=== PATIENT | female | born 1950 | race Caucasian/White ===

== ENCOUNTER → 2020-04-18 16:09 | Outpatient (BNVA) | payer MEDICARE, BC, SELFPAY | PROVIDERS: Family Provider Nurse Practitioner; Visit Provider Internal Medicine | DX: K80.20 Calculus of gallbladder without cholecystitis without obstruction (principal); R63.4 Abnormal weight loss; K57.32 Diverticulitis of large intestine without perforation or abscess without bleeding; Z86.010 Personal history of colon polyps | CPT/HCPCS: 80053; 82552; 82607; 82746; 83550; 84443; 85025; 85651; 86140 ==

== ENCOUNTER 2020-04-23 11:30 | Outpatient (CLI) | payer MEDICARE, BC, SELFPAY ==
[2020-04-23] MEDS: iohexol 300 mg/mL 50 mL Btl PO (11:40)
--- NOTE | 2020-04-23 13:00 | CT_ITS ---
WS: [id number] CT scan of the abdomen and pelvis with Oral and IV contrast. Additional two-dimensional coronal and s agittal reconstruction was performed. 04/23/2020 Clinical Data: recurrent and persistent diverticulitis. Comparison: CT abdomen and pelvis, 03/31/2018. DLP: 1111.35 mGy-cm All CT scans at [facility] use at least one of these dose optimization techniques: automat ed exposure control; mA and/or kV adjustment per patient size (includes targeted exams where dose is matched to clinical indication); or iterative reconstruction. Findings: The lower lungs show no masses or effusions. There is a 0.3 cm granuloma seen best in image 1 of 88 adjacent to the posterior right pleural surface. The liver, spleen, adrenal glands and pancreas are normal. There are gallstones within the gallbladde r. The kidneys show equal bilateral contrast excretion with small right renal cysts but no masses, hydro nephrosis or renal calculi. The abdominal aorta is normal in size with minimal calcification in the wall. No appendicitis or diverticulitis is seen. Numerous sigmoid diverticula are present. Oral contrast is in the stomach, small bowel and colon and there is no bowel dilatation. There is a herniation of fat in the left posterior paravertebral region which measures 7.0 x 6 8.4 cm in oblique transverse and o blique superior-inferior dimension. There is a amorphous connecting the abdominal wall to this fatty lesion measuring 1.7 cm. This fatty lesion is unchanged. The bladder is unremarkable. The uterus is a bsent. No inguinal hernia is seen. There is an old compression fracture of L1 along with osteoarthritic change of the lower thoracic and lumbar vertebral bodies. There is degenerative disc narrowing at L4-L5. CT/CT abdomen pelvis w con* [id number] Impression: 1. Negative for acute intra-abdominal or pelvic abnormalities. 2. No change in left paravertebral fatty hernia. 3. No change in cholelithiasis and diverticulosis.
[2020-04-23] MEDS: iohexol 300 mg/mL 100 mL Btl IV (13:22)
== END 2020-04-23 11:31 | disposition home or self-care (01) ==
LOC: RADWPI 11:34
PROVIDERS: PCP Internal Medicine; Visit Provider Internal Medicine
DX: K57.32 Diverticulitis of large intestine without perforation or abscess without bleeding (principal)
CPT/HCPCS: 74177; Q9967

== ENCOUNTER → 2020-04-25 10:44 | Outpatient (BNVA) | payer MEDICARE, BC, SELFPAY | PROVIDERS: PCP Internal Medicine; Visit Provider Internal Medicine | DX: Z11.59 Encounter for screening for other viral diseases (principal) | CPT/HCPCS: 87635 ==

== ENCOUNTER 2020-04-29 09:18 | Day surgery (SDC) | payer MEDICARE, BC, SELFPAY ==
--- NOTE | 2020-04-29 09:20 | W.PM.OPSUD ---
Surgery/Procedure H&P Update DATE OF PROCEDURE: April 29, 2020 DATE H&P PERFORMED: 04/25/20 PLANNED PROCEDURE: Operation Date: 04/29/20 09:50 Proposed Procedures p Colonoscopy 51646 Z86.010(Not Applicable) - Mikey Senior MD
[2020-04-29 10:22] VITALS: BP 141/92; PULSE 90; RESP 18; TEMP 36.2; O2SAT 96
[2020-04-29 10:31] LABS: Glucose Point of Care 108 mg/dL (70-110)
[2020-04-29 10:40] VITALS: BMI 25.2
[2020-04-29] MEDS: sodium chloride 0.9% 1,000 ML 30 ML IV (10:45)
--- NOTE | 2020-04-29 10:49 | ANES.PREANE2 ---
Pre-Anesthetic Assessment Pre-Anesthetic Assessment: Height/Weight: Height 1.63 m Weight 66.678 kg Temp Pulse Resp BP Pulse Ox 97.1 F L 90 18 141/92 96 04/29/20 10:22 04/29/20 10:22 04/29/20 10:22 04/29/20 10:22 04/29/20 10:22 Preop Diagnosis: d Proposed Procedure: Operation Date: 04/29/20 09:50 Proposed Procedures p Colonoscopy 75942 Z86.010(Not Applicable) - Mikey Senior MD Was Beta Tank taken within 24 hours: N/A Last intake: Intake Last Liquid Date 04/28/20 Last Liquid Time 22:00 Last Solid Date 04/27/20 Last Solid Time 20:00 Social: Social History: No alcohol and No tobacco Exam: Pre-Anes Outpt Exam: alert, oriented x 3, clear to auscultation bilaterally and regular rate & rhythm Airway: Submandibular: Other (Receeding Mandible ) Cervical ROM: WNL MP: 3 Dentition: Caps History/ROS: No significant history except as noted Pulmonary: Pulmonary: None reported CV/HEM: CV/HEM: HTN : : None reported Hepatic: Hepatic: None reported GI: GI: GERD Metabolic: Metabolic: DM Musc/skel: Musc/skel: None reported Neuropsych: Neuropsych: Depression Anesthetic Plan: ASA status: 2 Anesthesia: MAC Meds/Allergies Current Medications: Current Medications Generic Name Dose Route Start Last Admin Trade Name Freq PRN Reason Stop Dose Admin Sodium Chloride 1,000 mls @ 30 ml s/hr 04/29/20 10:00 04/29/20 10:45 Sodium Chloride 0.9% IV 30 mls/hr .Q24H NIKOS Administration PFSH Anesthesia PFSH: Family History Father Cancer Hypertension Mother Cancer Hypertension Social History Smoking and tobacco status: never smoked Alcohol intake: never History of recent travel: No Data Anesthesia Other Labs: Laboratory Results - last 48 hr 04/29/20 10:28 POC Glucose 108 Cardiac Studies: No Data to Display
[2020-04-29 11:21] VITALS: BP 125/74; PULSE 69; RESP 16; TEMP 36.2; O2SAT 100
[2020-04-29 11:42] VITALS: BP 120/81; PULSE 74; RESP 16; O2SAT 97
--- NOTE | 2020-04-29 14:07 | ANE.PACU2 ---
Inpatient post-anesthesia follow up: Airway intact: Yes Vital signs: Temperature 97.1 F Pulse Rate 74 Respiratory Rate 16 Blood Pressure 120/81 Pulse Oximetry 97 Oxygen Delivery Me thod Room Air Oxygen Flow Rate Fraction of Inspir ed Oxygen Hydration adequate: Yes Nausea and vomiting: No Pain level: 1 Mental status: Baseline
[2020-04-30 07:03] LABS: H. Pylori / CLO Test Negative
== END 2020-04-29 12:15 | disposition home or self-care (01) ==
PROVIDERS: PCP Internal Medicine; Visit Provider Internal Medicine
PROC: 0DJD8ZZ Inspection of Lower Intestinal Tract, Via Natural or Artificial Opening Endoscopic (ICD-10-PCS; CPT 45378; principal; 2020-04-29 09:50)
PROC: 0DJD8ZZ Inspection of Lower Intestinal Tract, Via Natural or Artificial Opening Endoscopic (ICD-10-PCS; CPT 45378; 2020-04-29 09:50)
DX: Z86.010 Personal history of colon polyps (principal); K57.32 Diverticulitis of large intestine without perforation or abscess without bleeding; K31.7 Polyp of stomach and duodenum; I10 Essential (primary) hypertension; K21.9 Gastro-esophageal reflux disease without esophagitis; E11.9 Type 2 diabetes mellitus without complications; Z79.84 Long term (current) use of oral hypoglycemic drugs
CPT/HCPCS: 12345; 36416; 43239; 45378; 82962; 87077; 88305; J7030

== ENCOUNTER 2020-05-22 08:12 | Outpatient (CLI) | payer MEDICARE, BC, SELFPAY ==
--- NOTE | 2020-05-22 08:30 | FL_ITS ---
WS: [id number] Gastrografin enema, 05/22/2020 Clinical Data: K57.32 - Diverticulitis of large intestine without perforation or abscess without blee ding Fluoroscopy time: 1.6 minutes Comparison: None. Findings: The preliminary film was not remarkable. The Gastrografin was introduced in a retrograde fashion to fill the entire colon. There are numerous sigmoid diverticula. No diverticulitis was seen. No polyps, masses or significant narrowing was seen. The appendix was refluxed. The ileocecal valve was identified. The mucosal surface was unremarkable. FL/FL enema w gastrografin [id number] Impression: 1. Numerous sigmoid diverticula without diverticulitis. 2. No appendiceal reflux but the ileocecal valve was identified. Fluoroscopy
[2020-05-22] MEDS: diatrizoate meglumine 120 mL Sol PR (08:48)
== END 2020-05-22 08:13 | disposition home or self-care (01) ==
LOC: RADWPI 08:18
PROVIDERS: PCP Internal Medicine; Visit Provider Surgery
DX: K57.30 Diverticulosis of large intestine without perforation or abscess without bleeding (principal)
CPT/HCPCS: 74270; Q9963

== ENCOUNTER 2020-06-05 07:51 | Day surgery (SDC) | payer MEDICARE, BC, SELFPAY ==
[2020-06-04 13:54] VITALS: BMI 25.7
[2020-06-05] VITALS (11 sets, daily range): BP systolic 143–185; BP diastolic 76–104; PULSE 69–101; RESP 12–20; TEMP 36.2–36.8; O2SAT 90–100
--- NOTE | 2020-06-05 08:27 | W.PM.OPSUD ---
Surgery/Procedure H&P Update DATE OF PROCEDURE: June 05, 2020 DATE H&P PERFORMED: 05/31/20 H&P UPDATE INFORMATION: I have reviewed H&P completed within last 30 days, I have examined patient prior to procedure and No changes to prior documentation PREOP DIAGNOSIS: Cholelithiasis PLANNED PROCEDURE: Operation Date: 06/05/20 09:10 Proposed Procedures p Laparoscopic poss open Cholecystectomy 96564 k80.20(Not Applicable) - Cristofer Rojas MD
--- NOTE | 2020-06-05 08:30 | ANES.PREANE2 ---
Pre-Anesthetic Assessment Pre-Anesthetic Assessment: Height/Weight: Height 1.63 m Weight 68.039 kg Preop Diagnosis: Cholelithiasis Proposed Procedure: Operation Date: 06/05/20 09:10 Proposed Procedures p Laparoscopic poss open Cholecystectomy 79251 k80.20(Not Applicable) - Cristofer Rojas MD Familial anesthetic complications: None Was Beta Tank taken within 24 hours: N/A Last intake: NPO > 8 hrs Social: Social History: No alcohol and No tobacco Exam: Pre-Anes Outpt Exam: alert, oriented x 3, clear to auscultation bilaterally and regular rate & rhythm Airway: Cervical ROM: WNL MP: 3 Dentition: Caps Pulmonary: Pulmonary: Sleep apnea (noncompliant w/ CPAP) CV/HEM: CV/HEM: HTN GI: GI: GERD Metabolic: Metabolic: DM Neuropsych: Neuropsych: Depression Anesthetic Plan: ASA status: 2 Anesthesia: General Risk of > 500 ml blood loss (7ml/kg in children): No PFSH Anesthesia PFSH: Medical History Anxiety and depression Diverticulitis History of colon polyps Hypertension Osteoporosis Surgical History H/O adenoidectomy H/O submucous nasal surgery H/O: hysterectomy History of appendectomy History of tonsillectomy Family History Father Cancer Hypertension Mother Cancer Hypertension Other Bleeding disorder Denies family history of Anesthesia complication Social History Smoking and tobacco status: never smoked Alcohol intake: never Household members: spouse Marital status: Current occupational status: employed History of recent travel: No Data Anesthesia Cardiac Studies: No Data to Display
[2020-06-05] MEDS: sodium chloride 0.9% 1,000 ML 30 ML IV (08:33)
[2020-06-05] MEDS: ciprofloxacin 400 MG/200 ML PREMIX 200 MG IV (09:12)
--- NOTE | 2020-06-05 10:32 | PM.OP ---
Operative Report Date of procedure: June 05, 2020 Pre-op Diagnosis: Cholelithiasis Post-op diagnosis: same Procedure Done: Laparoscopic cholecystectomy Specimens removed/disposition: Gallbladder Surgeon: Cristofer Rojas Anesthesia: General Condition: stable Disposition: PACU Procedure: The patient was taken to the operating room and was intubated under general anesthesia. After the antibiotic had been administered, the abdomen was prepped and draped in a sterile manner. Using a #15 blade, a 1 centimeter infraumbilical curvilinear incision was made and using an open Baljeet technique the peritoneal cavity was entered. A 10 millimeter port was placed and 15 millimeters of pneumoperitoneum was created. A 10 millimeter, 30 degrees scope was then introduced. Three 5 millimeter ports were placed in the epigastric, midclavicular and the anterior axillary line two fingerbreadths below the costal margin on the right side under the direct visualization. Ratcheted forceps were introduced into the lateral most port and was used to retract the fundus of the gallbladder cephalad and using forceps the infundibulum of the gallbladder was retracted laterally. Using L-hook cautery the peritoneum overlying the Calot's triangle was opened medially and laterally until the cystic duct and the cystic artery were skeletonized. Dissection was carried along the body of the gallbladder and after ensuring critical view of safety, 4 clips applied on the cystic duct and 3 clips applied on the cystic artery and cut leaving, 3 clips on the remaining portion of the duct and 2 clips on the remaining portion of the artery. The rest of the gallbladder was dissected off the liver using L-hook cautery. There was no bleeding or bile leaking noted from the gallbladder fossa and the clips appeared to be in place. An EndoCatch bag was introduced to remove the gallbladder. All the ports were removed under direct visualization and there was no bleeding noted from the port sites. The fascia of the umbilicus was closed using [id number] 0 Vicryl sutures and the subcutaneous tissue was approximated using 3-0 Vicryl sutures. The skin at all four ports were closed using 4-0 Monocryl and Dermabond. A total of 10 millimeters of 0.5% Marcaine was infiltrated around the port sites. The patient was stable throughout the procedure.
[2020-06-05] MEDS: fentaNYL 50 mcg/mL INJ 2mL 100 MCG IVP (10:57)
[2020-06-05] MEDS: morphine 4 mg/mL SDV 1 mL IVP (11:52)
--- NOTE | 2020-06-05 12:30 | ANE.PACU2 ---
Inpatient post-anesthesia follow up: Airway intact: Yes Vital signs: Temperature 98.2 F Pulse Rate 101 Respiratory Rate 18 Blood Pressure 143/88 Pulse Oximetry 90 Oxygen Delivery Me thod Nasal Cannula Oxygen Flow Rate 2 Fraction of Inspir ed Oxygen Hydration adequate: Yes Nausea and vomiting: No Pain level: 3 Mental status: Baseline
== END 2020-06-05 12:53 | disposition home or self-care (01) ==
PROVIDERS: PCP Internal Medicine; Visit Provider Surgery
PROC: 0FT44ZZ Resection of Gallbladder, Percutaneous Endoscopic Approach (ICD-10-PCS; CPT 47562; principal; 2020-06-05 09:10)
DX: K80.10 Calculus of gallbladder with chronic cholecystitis without obstruction (principal); K57.92 Diverticulitis of intestine, part unspecified, without perforation or abscess without bleeding; F41.9 Anxiety disorder, unspecified; F32.9 Major depressive disorder, single episode, unspecified; I10 Essential (primary) hypertension; E11.9 Type 2 diabetes mellitus without complications
CPT/HCPCS: 47562; 12345; 88304; J0744; J1100; J1885; J2270; J2405; J2704; J3010; J3490; J7030

== ENCOUNTER 2020-06-18 08:22 | Outpatient (CLI) | payer MEDICARE, BC, SELFPAY ==
--- NOTE | 2020-06-18 08:30 | MM_ITS ---
WS: [id number] Exam: [place] [id number] Date/Time of Exam: 06/18/2020 8:29 AM Reason For Exam: screen VIEWS: MLO and CC views both breasts. Comparison made with prior exam of 02/26/2017. Findings: There was no sign of mass, architectural distortion or suspicious calcification in either breast. He terogeneously dense MM/[place] [id number] Impression: BI-RADS: 2-Benign FOLLOW-UP: 1 Year Follow-up This mammogram was also analyzed by the Computer Aided Detection System R2 Imag e Fertilizer Supervisor.
== END 2020-06-18 08:23 | disposition home or self-care (01) ==
LOC: RADSHAW 08:25
PROVIDERS: PCP Internal Medicine; Visit Provider Internal Medicine
DX: Z12.31 Encounter for screening mammogram for malignant neoplasm of breast (principal)
CPT/HCPCS: 77067

== ENCOUNTER → 2020-07-08 11:24 | Outpatient (BNVA) | payer MEDICARE, BC, SELFPAY | PROVIDERS: PCP Internal Medicine; Visit Provider Nurse Practitioner Family | DX: N39.0 Urinary tract infection, site not specified (principal); Z87.440 Personal history of urinary (tract) infections; Z79.899 Other long term (current) drug therapy | CPT/HCPCS: 81003; 87086 ==

== ENCOUNTER → 2020-07-25 14:42 | Outpatient (BNVA) | payer MEDICARE, BC, SELFPAY | PROVIDERS: PCP Internal Medicine; Visit Provider Internal Medicine | DX: R39.89 Other symptoms and signs involving the genitourinary system (principal) | CPT/HCPCS: 81003; 87086 ==

== ENCOUNTER → 2020-08-08 09:00 | Outpatient (BNVA) | payer MEDICARE, BC, SELFPAY | PROVIDERS: PCP Internal Medicine; Visit Provider Internal Medicine | DX: N39.0 Urinary tract infection, site not specified (principal); I10 Essential (primary) hypertension | CPT/HCPCS: 80053; 84443; 85025 ==

== ENCOUNTER 2020-08-26 08:08 | Outpatient (CLI) | payer MEDICARE, BC, SELFPAY ==
--- NOTE | 2020-08-26 08:00 | US_ITS ---
WS: [id number] ULTRASOUND RENAL TECHNIQUE: Ultrasound examination of both kidneys. CLINICAL INFORMATION: N39.0 - Urinary tract infection, site not specified COMPARISON: None. FINDINGS: RIGHT: Right kidney is normal in size and appearance. Echogenicity: Normal. Cortical thickness: 1.0 cm; Normal. Hydronephrosis: None. Perinephric fluid: None. Right kidney measures: 10.3 cm x 3.8 cm x 4.7 cm. LEFT: Left kidney is normal in size and appearance. Echogenicity: Normal. Cortical thickness: 1.4 cm; Normal. Hydronephrosis: None. Perinephric fluid: None. Left kidney measures: 10.7 cm x 4.5 cm x 4.9 cm. Normal visualized aorta. US/US renal BI* [id number] IMPRESSION: Normal renal ultrasound
== END 2020-08-26 08:09 | disposition home or self-care (01) ==
LOC: RAD 08:13
PROVIDERS: PCP Internal Medicine; Visit Provider Internal Medicine
DX: N39.0 Urinary tract infection, site not specified (principal)
CPT/HCPCS: 76770

== ENCOUNTER → 2020-09-16 14:14 | Outpatient (BNVA) | payer MEDICARE, BC, SELFPAY | PROVIDERS: PCP Internal Medicine; Referring Provider Internal Medicine; Visit Provider Nurse Practitioner Family | DX: N39.0 Urinary tract infection, site not specified (principal) | CPT/HCPCS: 81003 ==

== ENCOUNTER → 2021-05-02 10:49 | Outpatient (BNVA) | payer MEDICARE, BC, SELFPAY | PROVIDERS: PCP Internal Medicine; Visit Provider Nurse Practitioner Family | DX: Z20.822 Contact with and (suspected) exposure to COVID-19 (principal) | CPT/HCPCS: 87635 ==

== ENCOUNTER 2021-05-09 17:50 | Emergency (ER) | payer MEDICARE, BC, SELFPAY ==
--- NOTE | 2021-05-09 17:58 | ECG_ITS ---
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 Measurements Intervals [place] Rate: 80 P: 38 SD: 157 QRS: -11 QRSD: 85 T: 43 QT: 379 QTc: 437 Interpretive Statements SINUS RHYTHM VOLTAGE CRITERIA FOR LVH [MEETS CRITERIA IN ONE OF: R(aVL), S(V1), R(V5), R(V5/V6)+S(V1)] NONSPECIFIC T-WAVE ABNORMALITY No previous ECG available for comparison Electronically Signed On 05-10-2021 21:59:03 TV TECHNICIAN by Waylon Bee M.D. [id number]
--- NOTE | 2021-05-09 17:58 | XRR_ITS ---
PROCEDURE INFORMATION: Exam: XR Chest Exam date and time: 05/09/2021 5:58 PM Age: 70 years old Clinical indication: Dyspnea; Additional info: Covid-19, dyspnea TECHNIQUE: Imaging protocol: XR of the chest. Views: 1 view. COMPARISON: CR FL enema w gastrografin [id number] 05/22/2020 8:25 AM FINDINGS: Lungs: Increased reticular interstitial lung markings. Hazy ground-glass opacities in the lateral lungs bilaterally. Pleural spaces: Unremarkable. No pleural effusion. No pneumothorax. Heart/Mediastinum: Unremarkable. No cardiomegaly. Bones/joints: Unremarkable. XR/XR chest 1V portable [id number] IMPRESSION: Prominent reticular pulmonary interstitium and mild degree of patchy peripheral airspace opacities may reflect changes of atypical pneumonia including COVID-19 infection. Radiation Dose CTDIVOL = (mGy): DLP = (mGy-cm)
[2021-05-09 18:10] VITALS: BP 144/89; PULSE 91; RESP 18; TEMP 36.8; O2SAT 92
[2021-05-09 20:12] VITALS: O2SAT 94
[2021-05-09 20:29] LABS: Basophils % 0.1 %; Eosinophils % 0.4 %; Hemoglobin 13.6 g/dL (11.5-15.3); Lymphocytes # 1.5 10^3/uL (0.8-4.8); Lymphocytes % 18.7 %; Mean Corpuscular HGB Conc 32.4 g/dL (30.0-36.0); Mean Corpuscular Volume 86.6 fl (81-99); Monocytes # 0.4 10^3/uL (0.2-0.9); Neutrophils % 75.2 %; Nucleated Red Blood Cells % 0 %; Platelet Count 248 10^3/cmm (130-400); Red Blood Count 4.85 10^6/uL (4.1-5.3); Red Cell Distribution Width 13.2 % (12.1-15.1)
--- NOTE | 2021-05-09 20:29 | ED_ITS ---
HPI - COVID General: Chief Complaint: COVID symptoms Stated Complaint: COVID +/LOW O2/CHEST TIGHTNESS Time Seen by Provider: 05/09/21 20:24 Source: patient Mode of arrival: ambulatory Limitations: no limitations Triage information: Has fever, cough or shortness of breath . Exposure to COVID + person last 14 days History of Present Illness: HPI Narrative: 70-year-old female who states that she has had Covid symptoms for the last 10 to 11 days tested positive Wednesday. States that today she has had some increased dyspnea and was concerned that she was getting hypoxic. She has had cough fever body aches denies any worsening proving factors denies any vomiting. Patient here is in no distress 95% on room air. COVID 19 common symptoms: positive fever(s), chills, non-productive cough and dyspnea; negative headache(s), throat pain, nausea, vomiting or diarrhea COVID 19 other sytmptoms: negative chest pain COVID Results: SARS-CoV-2 RNA (RT-PCR) Detected (NOT DETECTED) A 05/02/21 10:49 05/02/21 Review of Systems Const: Reports: fever(s) and chills Eyes: Denies: blurry vision or eye discomfort ENMT: Denies: throat pain or dental pain Card: Denies: chest pain Resp: Reports: dyspnea and non-productive cough GI: Denies: abdominal pain, nausea, vomiting or diarrhea : Denies: dysuria Musc: Denies: neck pain or back pain Skin/Breast: Denies: rash Neuro: Denies: headache(s) Psych: Denies: depression Suresh/Lymph: Denies: easy bruising All/Imm: Denies: urticaria PFSH ED PFSH: Medical History Anxiety and depression Diverticulitis History of colon polyps Hypertension Osteoporosis Recurrent UTI Surgical History H/O adenoidectomy H/O submucous nasal surgery H/O: hysterectomy History of appendectomy History of tonsillectomy Status post laparoscopic cholecystectomy (06/05/20) Family History Father , at 84 Cancer Prostate Hypertension Mother , at 74 Cancer Breast Hypertension Other Bleeding disorder Denies family history of Anesthesia complication Social History Smoking and tobacco status: never smoked Alcohol intake: never Household members: spouse Marital status: Current occupational status: employed History of recent travel: No Physical Exam Const: COMMON NORMALS: no acute distress, patient oriented x3 and healthy appearing HENMT: COMMON NORMALS: normocephalic and atraumatic HEAD & SCALP: normocephalic and atraumatic Eye: COMMON NORMALS: Equal, round and reactive pupils present and EOMs intact bilaterally PUPIL: Yes Equal, round and reactive pupils present Neck/C-Spine: COMMON NORMALS: full ROM and supple Chest: COMMONS NORMALS: normal inspection of the chest and normal palpation of entire chest wall Resp: COMMON NORMALS: normal respiratory effort, No retractions, No use of accessory muscles and clear to auscultation bilaterally AUSCULTATION: clear to auscultation bilaterally Cardio: COMMON NORMALS: regular rate, regular rhythm and No murmurs present (Cardio) RATE: regular rate RHYTHM: regular rhythm GI: COMMON NORMALS: Normal to inspection, nondistended, normoactive bowel sounds present, Soft to palpation, non-tender and no masses PALPATION: Yes Soft to palpation Extremity: COMMON NORMALS: normal to inspection and full ROM Neuro: COMMON NORMALS: patient oriented x3, moves all extremities and no focal motor deficits Psych: COMMON NORMALS: mental status grossly normal, Normal thought process present and cooperative THOUGHT PROCESS: Normal thought process present Skin: COMMON NORMALS: no rashes or lesions noted and no wounds GENERAL SKIN EXAM: no rashes or lesions noted Course Vital Signs: Vital signs: Vital Signs Temperature 98.2 F 05/09/21 18:10 Pulse Rate 82 05/09/21 21:00 Respiratory Rate 18 05/09/21 21:00 Blood Pressure 121/74 05/09/21 21:00 Pulse Oximetry 94 05/09/21 21:00 MDM - COVID MDM Narrative: Medical decision making narrative: Patient presents here with Covid. She is well-appearing here and in no distress. Patient's oxygenation has been normal on room air she has not required any oxygen CT scan here is normal. She is stable for discharge to follow-up with PCP and return if worsening. Lab Data: Labs: Lab Results 05/09/21 05/09/21 05/09/21 20:06 20:06 20:06 WBC 8.0 10^3/uL 10^3/ uL (4.0-10.0) RBC 4.85 10^6/uL 10^6 /uL (4.1-5.3) Hgb 13.6 g/dL g/dL (11.5-15.3) Hct 42.0 % % (37.0-47.0) MCV 86.6 fl fl (81-99) MCH 28.0 pg pg (28.0-34.0) MCHC 32.4 g/dL g/dL (30.0-36.0) RDW 13.2 % % (12.1-15.1) Plt Count 248 10^3/cmm 10^3 /cmm (130-400) MPV 10.0 fL fL (7.4-10.4) Neut % (Auto) 75.2 % % Lymph % (Auto) 18.7 % % [place] % (Auto) 5.0 % % Eos % (Auto) 0.4 % % Baso % (Auto) 0.1 % % Neut # (Auto) 6.00 10^3/uL 10^3 /uL (1.8-7.7) Lymph # (Auto) 1.5 10^3/uL 10^3/ uL (0.8-4.8) [place] # (Auto) 0.4 10^3/uL 10^3/ uL (0.2-0.9) Eos # (Auto) 0.0 10^3/uL 10^3/ uL (0.0-0.8) Baso # (Auto) 0.0 10^3/uL 10^3/ uL (0.0-0.1) Nucleated RBC % (a uto) 0 % % Nucleated RBCs # 0.0 /100WBC /100W BC PT 13.20 SECONDS SEC ONDS (12.1-14.9) INR 0.97 (0.8-1.2) APTT 42.1 SECONDS H SE CONDS (23.9-36.7) D-Dimer 1.30 ug/mIFEU H u g/mIFEU (0-0.59) Sodium 138 mmol/L mmol/L (136-145) Potassium 3.7 mmol/L mmol/L (3.5-5.1) Chloride 100 mmol/L mmol/L (98-107) Carbon Dioxide 23 mmol/L mmol/L (22-29) Anion Gap 18.7 (5-19) BUN 13 mg/dL mg/dL (8-23) Creatinine 0.5 mg/dL mg/dL (0.5-0.9) GFR Calculation Not Reportable Glucose 157 mg/dL H mg/dL (65-115) Calculated Osmolal ity 289 mOsm/kg mOsm/ kg (285-295) Calcium 8.8 mg/dL mg/dL (8.5-10.5) Total Bilirubin 0.3 mg/dL mg/dL (0.15-1.2) AST 18 U/L U/L (0-32) ALT 17 U/L U/L (0-33) Alkaline Phosphata se 113 IU/L H IU/L (35-105) Troponin T Baselin e Troponin T 120 Min [place] C-Reactive Protein 106.5 mg/L H mg/L (0.0-4.9) NT-Pro-B Natriuret Pep 50 pg/mL pg/mL (0-125) Total Protein 6.7 g/dL g/dL (6.6-8.7) Albumin 3.9 g/dL g/dL (3.5-5.2) Globulin 2.8 g/dL g/dL (1.3-4.6) Procalcitonin 0.06 ng/mL ng/mL (0-0.5) 05/09/21 05/09/21 20:06 22:34 WBC RBC Hgb Hct MCV MCH MCHC RDW Plt Count MPV Neut % (Auto) Lymph % (Auto) [place] % (Auto) Eos % (Auto) Baso % (Auto) Neut # (Auto) Lymph # (Auto) [place] # (Auto) Eos # (Auto) Baso # (Auto) Nucleated RBC % (a uto) Nucleated RBCs # PT INR APTT D-Dimer Sodium Potassium Chloride Carbon Dioxide Anion Gap BUN Creatinine GFR Calculation Glucose Calculated Osmolal ity Calcium Total Bilirubin AST ALT Alkaline Phosphata se Troponin T Baselin e 7 ng/L ng/L (0-10) Troponin T 120 [address] [place] 6.00 ng/L ng/L (0-10) C-Reactive Protein NT-Pro-B Natriuret Pep Total Protein Albumin Globulin Procalcitonin Imaging Data: CXR: Attestation: I personally reviewed and interpreted this imaging study as follows: Radiologist's impression: [employer] [place] [address] XRay Report Signed Patient: Hali Hurley Unit #: [id number] : 08/19/1932 Acct#:[id number] Age/Sex: 88 / F ADM Date: 05/09/21 Loc: ER Room/Bed: Attending Dr: Ordering Provider/Ordering MD: Elliott Gilmore NP Date of Service: 05/09/21 Procedure(s): XR chest 1V portable [id number] Accession Number(s): [id number] Report Number: [id number] PROCEDURE INFORMATION: Exam: XR Chest Exam date and time: 05/09/2021 5:35 PM Age: 88 years old Clinical indication: Shortness of breath; Additional info: Short of breath TECHNIQUE: Imaging protocol: XR of the chest. Views: 1 view. COMPARISON: CR XR chest 2V* [id number] 11/01/2020 11:42 AM FINDINGS: Lungs: Atelectasis and calcified granuloma in the left base. The right lung is clear. Pleural spaces: Unremarkable. No pleural effusion. No pneumothorax. Heart/Mediastinum: Unremarkable. No cardiomegaly. Bones/joints: Old left proximal humerus fracture. XR/XR chest 1V portable [id number] IMPRESSION: 1. No acute finding. Radiation Dose CTDIVOL = (mGy): DLP = (mGy-cm) Dictated By: Harsha Alberto Signed By: Harsha Alberto Signed Date/Time: 05/09/21 190 DD/ 1735 CT Chest: Attestation: I personally reviewed and interpreted this imaging study as follows: Radiologist's impression: [place] [address] CT Scan Report Signed Patient: Anna Sarmiento Unit #: [id number] : 1950 Age/Sex: 70 / F ADM Date: 05/09/21 Loc: ER Room/Bed: Attending Dr: Ordering Provider/Ordering MD: Kaity Marie MD Date of Service: 05/09/21 Procedure(s): CT angio chest PE protcl [id number] Accession Number(s): [id number] Report Number: [id number] PROCEDURE INFORMATION: Exam: CTA Chest With Contrast Exam date and time: 05/09/2021 9:01 PM Age: 70 years old Clinical indication: Shortness of breath; Additional info: SOB, covid +, cough, weakness TECHNIQUE: Imaging protocol: Computed tomographic angiography of the chest with contrast. 3D rendering (Not supervised by radiologist): MIP and/or 3D reconstructed images were created by the technologist. Radiation optimization: All CT scans at this facility use at least one of these dose optimization techniques: automated exposure control; mA and/or kV adjustment per patient size (includes targeted exams where dose is matched to clinical indication); or iterative reconstruction. Contrast material: OMNI 350; Contrast volume: 71 ml; Contrast route: INTRAVENOUS (IV); COMPARISON: CR (CHEST, ) 05/09/2021 6:12 PM RADIATION DOSE METRICS: Total DLP (mGy-cm): 517.66 FINDINGS: Pulmonary arteries: Normal. No pulmonary emboli. Aorta: Unremarkable. No aortic aneurysm. No aortic dissection. Lungs: Scattered ground-glass changes are noted in both lungs mostly peripheral aspects. Negative for endobronchial obstruction. Reticular interstitial lung change. Pleural spaces: Unremarkable. No pneumothorax. No pleural effusion. Heart: Unremarkable. No cardiomegaly. No pericardial effusion. Lymph nodes: Mild degree of diffuse mediastinal lymphadenopathy. Several calcified lymph nodes in the mediastinum are present. Gallbladder and bile ducts: Cholecystectomy. Adrenal glands: Small left adrenal gland calcification. No adrenal gland mass or enlargement. Bones/joints: Unremarkable. No acute fracture. Soft tissues: Unremarkable. CT/CT angio chest PE protcl [id number] IMPRESSION: 1. Negative for pulmonary embolism. 2. Ground-glass lesions in both lungs. 3. Commonly reported imaging features of COVID-19 pneumonia are present. Other processes such as influenza pneumonia and organizing pneumonia, as can be seen with drug toxicity and connective tissue disease, can cause a similar imaging pattern. (Reference: Fermín) 4. Granulomatous lymph node changes in the mediastinum. REFERENCES: Fermín Johnson, et al., Radiological Society of [place] Expert Consensus Statement on Reporting Chest CT Findings Related to COVID-19. Endorsed by the Society of Thoracic Radiology, the [place] [employer], and RSNA. Published September 13, 2019. Radiation Dose CTDIVOL = (mGy): DLP = 517.66 (mGy-cm) Dictated By: Sukhwinder Ocampo Signed By: Sukhwinder Ocampo Signed Date/Time: 05/09/212244 DD/ 00 EKG Data: EKG 1: Attestation: I personally reviewed and interpreted this EKG as follows: EKG interpretation date: 05/09/21 EKG interpretation time: 21:17 Interpretation: nsr hr [address] or t wave abnormalities qrs 85 qtc 414 COVID Results: SARS-CoV-2 RNA (RT-PCR) Detected (NOT DETECTED) A 05/02/21 10:49 05/02/21 Discharge Plan Discharge Patient Disposition: Home Clinical Impression: COVID-19 Condition: Stable Prescriptions: New albuterol sulfate 90 mcg/actuation HFA aerosol inhaler 2 inh INHALATION Q6H PRN (Reason: shortness of breath or wheezing) Qty: 8 RF: 0 No Action fluticasone propionate 50 mcg/actuation spray,suspension 1 spray INTRANASAL DAILY RF: 0 ibuprofen 200 mg capsule 400 mg PO .at bedtime PRN (Reason: Pain) RF: 0 Zyrtec 10 mg capsule 10 mg PO DAILY RF: 0 latanoprost 0.005 % drops 1 drop ophthalmic (eye) DAILY RF: 0 cranberry extract 200 mg capsule 200 mg PO DAILY RF: 0 venlafaxine [Effexor XR] 75 mg capsule,extended release 24hr 75 mg PO DAILY Qty: 90 RF: 3 Zofran 4 mg tablet 4 mg PO Q6H PRN (Reason: nausea and vomiting) Qty: 20 RF: 0 pantoprazole [Protonix] 40 mg tablet,delayed release (DR/EC) 40 mg PO DAILY Qty: 90 RF: 3 lisinopril 10 mg tablet 20 mg PO DAILY Qty: 90 RF: 3 ciprofloxacin HCl [Cipro] 500 mg tablet 500 mg PO BID Qty: 10 RF: 2 Discharge Orders: Discharge ED (Routine); Ordered 05/09/21 Ordered By: Kaity Marie Referrals: Mikey Senior MD [Primary Care Provider] - 1-3 days Discharge Diet: Advance as tolerated Discharge Activity: Resume usual activity Patient Instructions: Upper Respiratory Infection (ED), Opioid Safety Coding Level of Care Code 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
[2021-05-09 20:42] VITALS: BP 118/72; RESP 20; O2SAT 94
[2021-05-09 20:43] LABS: INR 0.97 (0.8-1.2)
[2021-05-09 20:44] LABS: Partial Thromboplastin Time 42.1 SECONDS (23.9-36.7)
[2021-05-09 20:57] LABS: Troponin(5th) Baseline 7 ng/L (0-10)
[2021-05-09 21:00] VITALS: BP 121/74; PULSE 82; RESP 18; O2SAT 94
--- NOTE | 2021-05-09 21:01 | CTR_ITS ---
PROCEDURE INFORMATION: Exam: CTA Chest With Contrast Exam date and time: 05/09/2021 9:01 PM Age: 70 years old Clinical indication: Shortness of breath; Additional info: SOB, covid +, cough, weakness TECHNIQUE: Imaging protocol: Computed tomographic angiography of the chest with contrast. 3D rendering (Not supervised by radiologist): MIP and/or 3D reconstructed images were created by the technologist. Radiation optimization: All CT scans at this facility use at least one of these dose optimization techniques: automated exposure control; mA and/or kV adjustment per patient size (includes targeted exams where dose is matched to clinical indication); or iterative reconstruction. Contrast material: OMNI 350; Contrast volume: 71 ml; Contrast route: INTRAVENOUS (IV); COMPARISON: CR (CHEST, ) 05/09/2021 6:12 PM RADIATION DOSE METRICS: Total DLP (mGy-cm): 517.66 FINDINGS: Pulmonary arteries: Normal. No pulmonary emboli. Aorta: Unremarkable. No aortic aneurysm. No aortic dissection. Lungs: Scattered ground-glass changes are noted in both lungs mostly peripheral aspects. Negative for endobronchial obstruction. Reticular interstitial lung change. Pleural spaces: Unremarkable. No pneumothorax. No pleural effusion. Heart: Unremarkable. No cardiomegaly. No pericardial effusion. Lymph nodes: Mild degree of diffuse mediastinal lymphadenopathy. Several calcified lymph nodes in the mediastinum are present. Gallbladder and bile ducts: Cholecystectomy. Adrenal glands: Small left adrenal gland calcification. No adrenal gland mass or enlargement. Bones/joints: Unremarkable. No acute fracture. Soft tissues: Unremarkable. CT/CT angio chest PE protcl [id number] IMPRESSION: 1. Negative for pulmonary embolism. 2. Ground-glass lesions in both lungs. 3. Commonly reported imaging features of COVID-19 pneumonia are present. Other processes such as influenza pneumonia and organizing pneumonia, as can be seen with drug toxicity and connective tissue disease, can cause a similar imaging pattern. (Reference: Fermín) 4. Granulomatous lymph node changes in the mediastinum. REFERENCES: Fermín Johnson et al., Radiological Society of [place] Expert Consensus Statement on Reporting Chest CT Findings Related to COVID-19. Endorsed by the Society of Thoracic Radiology, the [employer] [employer], and RSNA. Published September 13, 2019. Radiation Dose CTDIVOL = (mGy): DLP = 517.66 (mGy-cm)
[2021-05-09 21:08] LABS: NT Pro B Type Natriuretic Pept 50 pg/mL (0-125); Procalcitonin 0.06 ng/mL (0-0.5)
[2021-05-09 21:19] LABS: Alanine Aminotransferase 17 U/L (0-33); Albumin Level 3.9 g/dL (3.5-5.2); Alkaline Phosphatase 113 IU/L (35-105); Anion Gap 18.7 (5-19); Aspartate Amino Transferase 18 U/L (0-32); Blood Urea Nitrogen 13 mg/dL (8-23); C Reactive Protein 106.5 mg/L (0.0-4.9); Calcium 8.8 mg/dL (8.5-10.5); Carbon Dioxide 23 mmol/L (22-29); Chloride 100 mmol/L (98-107); Globulin 2.8 g/dL (1.3-4.6); Glucose 157 mg/dL (65-115); Osmolality Calculated 289 mOsm/kg (285-295); Potassium 3.7 mmol/L (3.5-5.1); Sodium 138 mmol/L (136-145); Total Bilirubin 0.3 mg/dL (0.15-1.2); Total Protein 6.7 g/dL (6.6-8.7)
[2021-05-09] MEDS: iohexol 350 mg/mL 100 mL Btl IV (22:27)
== END 2021-05-10 00:39 | disposition home or self-care (01) ==
PROVIDERS: Nurse Practitioner Family; Emergency Provider Emergency Medicine; PCP Internal Medicine
DX: U07.1 COVID-19 (principal); I10 Essential (primary) hypertension
CPT/HCPCS: 36415; 71045; 71275; 80053; 83880; 84145; 84484; 85025; 85378; 85610; 85730; 86140; 93005; 99283; Q9967

== ENCOUNTER 2022-07-31 10:52 | Outpatient (CLI) | payer MEDICARE, SELFPAY ==
--- NOTE | 2022-07-31 11:02 | MM_ITS ---
WS: [id number] BILATERAL SCREENING DIGITAL TOMOSYNTHESIS MAMMOGRAM WITH CAD HISTORY: SCREENING COMPARISON: 06/18/2020 and 09/21/2018 Bilateral CC and MLO views with tomosynthesis and synthetic mammography submitted. Computer aided det ection analyzed. Breast composition: The breasts are heterogeneously dense, which may obscure small masses. No suspici ous masses, microcalcifications or architectural distortion. Benign calcification RIGHT breast. MM/[place] [id number] IMPRESSION: BI-RADS: 2-Benign FOLLOW UP: 1 Year Follow-up
== END 2022-07-31 10:53 | disposition home or self-care (01) ==
PROVIDERS: PCP Internal Medicine; Visit Provider Electrodiagnostic Medicine
DX: Z12.31 Encounter for screening mammogram for malignant neoplasm of breast (principal)
CPT/HCPCS: 77063; 77067

== ENCOUNTER 2024-05-03 13:14 | Outpatient (CLI) | payer MEDICARE, SELFPAY ==
--- NOTE | 2024-05-03 13:16 | XR_ITS ---
WS: [id number] DEXA (DUAL ENERGY X-RAY ABSORPTIOMETRY) Bone mineral density was performed using a yeppt machine. HISTORY: POSTMENOPAUSAL COMPARISON: 09/21/2018 Lumbar spine BMD (L1-L4): 1.206 g/cm2 T score: 0.2 Z score: 1.9 Total hip BMD: Left: 0.807 g/cm2. T score: -1.6 Z score: 0.1 Right: 0.794 g/cm2. T score: -1.7 Z score: 0.0 10 year probability of a major osteoporotic fracture is 25.6%. Compared to the prior study from 09/21/2018. Lumbar spine bone mineral density has decreased by 1.3%. Bilateral hips bone mineral density has decreased by 3.7%. XR/XR DEXA axial skeleton* [id number] IMPRESSION: OSTEOPENIA based upon the WHO classification for females. Significant decrease in bone mineral density within the hips since the prior .
--- NOTE | 2024-05-03 13:16 | MM_ITS ---
WS: [id number] BILATERAL 3D TOMOSYNTHESIS DIGITAL SCREENING MAMMOGRAPHY WITH CAD CLINICAL INFORMATION: SCREENING HISTORY: Screening mammogram. No current complaints. COMPARISON: 2022 TECHNIQUE: Bilateral CC and MLO views. FINDINGS: The breasts are composed of heterogeneous fibroglandular density tissue, which can limit the detectio n of small underlying mass lesions. No suspicious mass, asymmetry, calcifications, or architectural d istortion. No evidence of malignancy. A few incidental punctate and lucent centered calcifications. MM/MM [facility] tomosynthesis [id number] IMPRESSION: DENSITY: The breasts are heterogeneously dense, which may obscure small masses. BI-RADS: 2 - Benign FOLLOW UP: 1 Year Follow-up Recommend return to annual screening mammography.
== END 2024-05-03 13:15 | disposition home or self-care (01) ==
LOC: RAD 13:15
PROVIDERS: PCP Electrodiagnostic Medicine; Visit Provider Nurse Practitioner Family
DX: Z78.0 Asymptomatic menopausal state (principal); M85.80 Other specified disorders of bone density and structure, unspecified site; Z12.31 Encounter for screening mammogram for malignant neoplasm of breast
CPT/HCPCS: 77063; 77067; 77080